=== PATIENT | male | born 1975 | race Caucasian/White ===

== ENCOUNTER 2022-01-17 09:59 | Outpatient (CLI) | payer OTHER, SELFPAY | END 2022-01-17 10:00 | disposition home or self-care (01) | LOC: OP CLINIC 10:01 | PROVIDERS: PCP Family Medicine; Visit Provider Surgery | DX: Z12.11 Encounter for screening for malignant neoplasm of colon (principal); K62.1 Rectal polyp; K57.30 Diverticulosis of large intestine without perforation or abscess without bleeding | CPT/HCPCS: 45385; 88305; 99153; J2250; J3010 ==

== ENCOUNTER 2022-06-21 13:39 | Outpatient (CLI) | payer OTHER, SELFPAY ==
--- NOTE | 2022-06-21 14:00 | CRLHL7_ITS ---
For Patients: As a result of the Century Cures Act, medical imaging exams and procedure reports are released immediately into your electronic medical record. You may view this report before your referring provider. If you have questions, please contact your health care provider. INDICATION: left testicular pain x1 week COMPARISON: none TECHNIQUE: Cohen scale imaging was performed of the scrotum. In addition color Doppler and spectral Doppler analysis was performed of the testes. FINDINGS: The testes demonstrate normal arterial and venous blood flow on color Doppler and spectral Doppler analysis. The testes have uniform echogenicity with no evidence of a suspicious mass or area of inflammation. The right testis measures 5.1 x 2.4 x 2.6 cm in size and the left testis measures 5.3 x 2.8 x 3.7 cm. Large complex left hydrocele is present with numerous internal septations. This hydrocele measures 6.0 x 5.3 x 5.4 cm. The left epididymis is not visualized. The right epididymis is normal. IMPRESSION: Large complex left hydrocele. Normal testicles. No torsion. Urology referral recommended. Dictated by Alexsander Morales MD @ 06/21/2022 3:22:21 PM (Electronically Signed)
== END 2022-06-21 13:40 | disposition home or self-care (01) ==
PROVIDERS: PCP Family Medicine; Visit Provider Family Medicine
DX: N50.82 Scrotal pain (principal); N43.3 Hydrocele, unspecified; N50.89 Other specified disorders of the male genital organs
CPT/HCPCS: 76870; 93976

== ENCOUNTER 2023-08-17 09:27 | Outpatient (CLI) | payer OTHER, SELFPAY ==
--- OUTSIDE RECORDS SUMMARY | 2023-08-18 08:38 | XMS_ITS | Referral Summary ---
Author Name Unknown Organization [facility] Address [address] [place] [id number] Care Team Providers Care Diabetic Educator Name Role Phone Unavailable Primary Care Provider Unavailabl e Allergies Active Allergy Reactions Criticality Noted Date Comments No Known Allergies 08/06/2015 Medications Medication Sig Dispensed Refills Start Date End Date Status levofloxacin (LEVAQUIN) 500 MG tabletIndications:Ac isa bronchitis, unspecified organism Take 1 tablet (500 mg) by mouth daily 10 tablet 0 08/06/2015 Active albuterol (PROAIR HFA, PROVENTIL HFA, VENTOLIN HFA) 108 (90 BASE) MCG/ACT inhalerIndications:A cute bronchitis, unspecified organism Inhale 2 puffs into the lungs every 6 hours as needed for shortness of breath / dyspnea or wheezing 1 Inhaler 0 08/06/2015 Active Active Problems Problem Noted Date Diagnosed Date CARDIOVASCULAR SCREENING; LDL GOAL LESS THAN 160 08/06/2015 Immunizations Name Administration Dates Next Due COVID-19 MONOVALENT 12+ (Pfizer) 08/19/2020,07/16 Social History Tobacco Use Types Packs/Day Years Used Date Smoking Tobacco: Former Alcohol Use Standard Drinks/Week Comments Yes 0 (1 standard drink = 0.6 oz pur e alcohol) PHQ-2 Answer Date Recorded PHQ-2 Score 0 05/03/2018 Adolescent Education Answer Date Record ed Getting School Help Needed Not on file 01/06 Sex and Gender Information Value Date Recorded Sex Assigned at Not on file Gender Identity Not on file Sexual Orientation Straight 07/17/2020 8: 49 AM CDT Last Filed Vital Signs Vital Sign Reading Time Taken Comments Blood Pressure 132/84 08/06/2015 4:09 PM CDT Pulse 76 08/06/2015 4:09 PM CDT Temperature 37 ??C (98.6 ??F) 08/06/2015 4:09 PM CDT Respiratory Rate 20 08/06/2015 4:09 PM CDT Oxygen Saturation 95% 08/06/2015 4:09 PM CDT Inhaled Oxygen Concentration - - Weight 112 kg (247 lb) 08/06/2015 4:09 PM CDT Height 183.5 cm (6' 0.25) 08/06/2015 4:09 PM CD T Body Mass Index 33.27 08/06/2015 4:09 PM CDT Plan of Treatment Not on file
--- OUTSIDE RECORDS SUMMARY | 2023-08-18 08:38 | XMS_ITS | Encounter Summary ---
Author Name Unknown Organization [facility] Address [address] [place] [id number] Care Team Providers Care Accounts Payables Clerk Name Role Phone Unavailable Primary Care Provider Unavailabl e Encounter Details Date Type Department Care Team (Late st Contact Info) Description 07/30/2020 Documentation Only INTERFACED REPORT Unknown, Provider Social History Tobacco Use Types Packs/Day Years Used Date Smoking Tobacco: Former Alcohol Use Standard Drinks/Week Comments Yes 0 (1 standard drink = 0.6 oz pur e alcohol) PHQ-2 Answer Date Recorded PHQ-2 Score 0 05/03/2018 Sex and Gender Information Value Date Recorded Sex Assigned at Not on file Gender Identity Not on file Sexual Orientation Straight 07/17/2020 8: 49 AM CDT documented as of this encounter Plan of Treatment Not on file documented as of this encounter Visit Diagnoses Not on filedocumented in this encounter
--- OUTSIDE RECORDS SUMMARY | 2023-08-18 08:38 | XMS_ITS | Clinical Summary ---
Author Name Unknown Organization [facility] Address [address] [place] [address] Care Team Providers Care Mailroom Messenger Name Role Phone Unavailable Primary Care Provider [...] Next Due COVID-19 MONOVALENT 12+ (Pfizer) 08/19/2020,07/16 Family History Medical History Relation Comments Other Cancer Father lung cancer Parkinsonism Maternal Grandfather Dementia Maternal Grandmother Diabetes Maternal Grandmother Heart Disease Paternal Grandfather Osteoporosis Paternal Grandmother Relation Status Comments Father Maternal Grandfather Maternal Grandmother Mother Alive Paternal Grandfather Paternal Grandmother Alive Social History Tobacco Use Types Packs/Day Years [...] 08/06/2015 4:09 PM CDT Plan of Treatment Health Maintenance Due Date Last Done Comments ADVANCE CARE PLANNING 1976 ANNUAL REVIEW OF HM ORDERS 1976 CT COLONOGRAPHY 1976 FIT 1976 FLEX SIG 1976 GLUCOSE 1976 YEARLY PREVENTIVE VISIT 1976 sDNA (Cologuard) 1976 COLONOSCOPY 1986 COLORECTAL CANCER SCREENING 1986 HIV SCREENING 06/18/1991 HEPATITIS C SCREENING 1994 HEPATITIS B IMMUNIZATION (1 of 3 - 19+ 3-dose series) 06/18/1995 DTAP/TDAP/TD IMMUNIZATION (1 - Tdap) 2001 LIPID 2016 COVID-19 Vaccine (3 - 2022-2 4 season) 2022 08/19/2020, 07/29/2020 INFLUENZA VACCINE (#1) 2022 PHQ-2 (once per calendar year) 2023 08/06/2015 HPV IMMUNIZATION Aged Out No longer e ligible based on patient's age to complete this topic IPV IMMUNIZATION Aged Out No longer e ligible based on patient's age to complete this topic MENINGITIS IMMUNIZATION Aged Out No l onger eligible based on patient's age to complete this topic Pneumococcal Vaccine: Pediatrics (0 to 5 Years) and At-Risk Patients (6 to 64 Years) Aged Out No longer eligible b ased on patient's age to complete this topic RSV MONOCLONAL ANTIBODY Aged Out No l onger eligible based on patient's age to complete this topic
--- OUTSIDE RECORDS SUMMARY | 2023-08-18 08:38 | XMS_ITS | Encounter Summary ---
Author Name Unknown Organization [facility] Address [address] [place] [id number] Care Team Providers Care Stitchdown Toe Former Name Role Phone Unavailable Primary Care Provider Unavailabl e Encounter Details Date Type Department Care Team (Late st Contact Info) Description 08/20/2020 Documentation Only INTERFACED REPORT Unknown, Provider Social [...]
== END 2023-08-17 09:28 | disposition home or self-care (01) ==
LOC: NFLDREF 08-18 08:36
PROVIDERS: PCP Family Medicine; Referring Provider Family Medicine; Visit Provider Family Medicine
DX: E78.5 Hyperlipidemia, unspecified (principal); Z13.228 Encounter for screening for other metabolic disorders
CPT/HCPCS: 80053; 80061

== ENCOUNTER 2024-04-25 07:30 | Outpatient (RCR) | payer OTHER, SELFPAY ==
--- NOTE | 2024-03-20 09:47 | PT.OPE ---
[facility] PT [facility] Out[facility] Eval Start: 03/19/24 17:04 Freq: Status: Active Protocol: Document 03/19/24 17:05 BMS (Rec: 03/19/24 18:15 BMS [id number]) E-signed By Autumn Esteves PT Physical Therapy Outpatient Evaluation Insurance Information Recert Due Date 06/16/24 Insurance Name Other; See Comments Insurance Information/Comments [employer] Provider Fax Number internal Medical Diagnosis M25.555 Pain in unspecified hip Treating Diagnosis LEFT hip pain M25.550 Referring MD Shen Tapia MD Subjective Preferred Name BJ Subjective patient reports hip pain of ~ 10 weeks with no known mechanism of injury. Denies previous injuries to lower body despite being involved in hockey, football and baseball in high school. 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. Just got off 8 weeks of outage working ~ 80 hours/week. Work is intermittent standing. Noticing point specific pain on L ischial tuberosity worst past month 11/24, best currently 05/27. Aggrevating: sitting, ascend stairs, in/out of car, great difficulty putting on socks, has to put foot on chair to reach down. Also c/o neck shoulder pain and tightness (chronic long standing also without known mechanism of injury) that limits turning, etc. Denies radicular or radiating symptoms either lumbar or neck . Neck/shoulders not assessed this date due to not having order, will submit to MD for signature should he feel this is appropriate add on. Lumbar pain noted with L hip flex and MMT goes across back. 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 Lateral trunk SB in standing mod limited B. Extension severe loss. SLR 40 degrees L without neural complaints, able to achieve 50 after stretching with ankle relaxed. Unable to long sit initially with knees straight and neutral DF with strap. Bent knee supine hip flex AROM to 70, PROM to 80 R, 90 L. After stretching appeared ~ 100. Supine heel slides knee R= 110 , L = 80. ? kneel hip flexor stretch ~ 30 deg from neutral with significant quad and iliopsoas restrictions. Prone hip flex passive to neutral. Prone knee flex L = 30, R = 80. Passive L = 40 with very very firm endfeel, R to 90. hip IR L painful impinge as is ER in groin. further assess of SI also should symptoms not resolve. Strength MMT seated B LE groups 5/5 except hip flex R = 4/5, L = 4 /5 with back pain and shift away from painful side Did not test standing plantar or dorsiflexion this date. Palpation significant myofascial restrictions noted throughout B LE. Unable to mobilize either patella which do appear to be proximal at baseline. ? Restrictions noted in hip B PA mobs as well as 90-90 distraction and abduction/ rotation mobs Balance & Gait initial contact is made on posterolateral border of B foot with minimal pushoff and near hypertext of knee in stance phase. L hip ER noted in gait. Lack of terminal hip extension. offloading of L LE and slightly decreased L stance time. lack of arm swing and trunk rotation Posture stance with shoes on: hip flex B with / barrel torso, WB shifted toward lateral borders . Shoes off demo L genu valgus to 15 degrees. Supine leg length appears symmetrical with no valgus noted. Standing WB on lateral borders with feet roll in Other/Pertinent Objective SLR (-) for neural, very limited due to tissue, Slump ( -) + impingement w rotation and pain L hip flexor/groin with active SLR Assessment Assessment/Impression Patient is very pleasant 48 yo male referred for ongoing L hip pain ~ 10 weeks duration. He has had chronic mm tightness with no known systemic cause but severely limits mobility. Ambulates with limp, unable to achieve upright in 1/2 kneel on L due to quad and iliopsoas restrictions. Lateral and medial structures likewise impaired. Pain in low back with seated resisted L hip flexion. Primary c/o difficulty with squatting, donning socks, in/out of car, amb, sitting on L ischial tuberosity due to pain. Has tried heat/ice, foam rolling, chiropractic and massage with limited relief. Myofascial restrictions mask loss of joint mobility and further assessment to follow prn. Trunk mobility and core strength lacking as noted with SLR. Patient is appropriate for skilled physical therapy to address myofascial, ROM, strength and gait limitations to restore function with minimal to no pain. Patient also presents with neck and shoulder pain, requests order for these as well. Will submit , if MD approves will likewise address these areas. Primary Functional Limitations donning socks (currently puts foot up on chair and finagles socks on), pain/tight with ascend more than descend stairs- lifting leg, also in / out of car. Sitting painful feels like am on golf ball. Want to be able to ski again this win Plan of Care Rehabilitation Potential Good Rehabilitation Potential Comments motivated Physical Therapy Goals 1) Pt demo I with home program to improve mobility and function, pain management and activity modification as needed. 2) Pt demo improved ROM and tissue extensibility to allow neutral hip in 1/2 kneel and standing. 3) Pt demo knee ROM > 110 and hip flex > 90 to allow improved squat, stair ascension, donning of socks and in/out of car without pain or adaptation. 4) Pt demo ability to sit, squat go up/down stairs without increased pain to allow improved comfort while working. Coordination/Communication With Referral Source Treatment Plan/Direct Interventions Compression Garments, Electrical Stimulation,Gait Training,Heat,Joint Mobilization,Manual Therapy, Neuromuscular Re-ed,Self-Care/ Home Management,Therapeutic Activities,Therapeutic Exercises,Traction (Mechanical ),Ultrasound Frequency/Duration 1-2x/ week work on home program and manual for improved myofascial mobility and joint mobility, advance to strengthening as able. modalities prn. Patient Will Be Discharged From Therapy Completion of LTG(s),Skills Plateau,Independently Progressing Evaluation Billing Untimed Code Treatment Minutes 35 Complexity Low Certification Information Initial Certification Date 03/19/24 Ending Certification Date 06/16/24 Provider Signature Required Communication Only-No Signature Required
== END 2024-08-23 23:59 | disposition home or self-care (01) ==
PROVIDERS: PCP Family Medicine; Visit Provider Family Medicine
DX: M25.552 Pain in left hip (principal); Z51.89 Encounter for other specified aftercare
CPT/HCPCS: 97110; 97140; 97161